=== PATIENT | female | born 1950 | race American Indian/Alaskan Native ===

== ENCOUNTER 2017-03-13 09:45 | Emergency (ER) | payer MEDICARE ==
[2017-03-13] MEDS ORDERED: ASPIRIN PO ONE (10:29)
[2017-03-13 10:41] VITALS: BP 158/75
[2017-03-13 11:22] LABS: Basophils % (Auto) 0.3 % (0.0-1.8); Eosinophils # (Auto) 0.1 K/mm3 (0.0-0.4); Eosinophils % (Auto) 0.9 % (0.0-4.3); Hemoglobin 10.8 gm/dl (10.1-14.3); Lymphocytes # (Auto) 1.9 K/mm3 (1.2-5.4); Lymphocytes % (Auto) 16.1 % (13.4-35.0); Mean Corpuscular HGB Conc 35 % (30-34); Mean Corpuscular Hemoglobin 32 pg (28-32); Mean Corpuscular Volume 90 fl (79-97); Monocytes # (Auto) 0.7 K/mm3 (0.0-0.8); Monocytes % (Auto) 6.1 % (0.0-7.3); Platelet Count 174 K/mm3 (140-440); Red Blood Count 3.44 M/mm3 (3.65-5.03)
--- NOTE | 2017-03-13 11:22 | Emergency Department Report ---
ED Syncope HPI - General Chief Complaint: Syncope Stated Complaint: SYNCOPE Time Seen by Provider: 03/13/17 10:37 Source: patient, family, RN/MD - History of Present Illness Timing/Prior Episodes: single episode today Precipitating Factors: Positive: other (dialysis session. ) Context: other (lying in bed) Loss of Consciousness: prolonged (minutes) (maybe 5 minutes) Current Symptoms: back to normal - Related Data Allergies/Adverse Reactions: Allergies No Known Allergies Allergy (Unverified 11/26/12 11:49) Home Medications: Ambulatory Orders Amlodipine Besylate [Amlodipine Besylate] 5 mg PO DAILY 05/19/15 Aspirin [Aspirin TAB] 325 mg PO ONCE 05/19/15 Insulin Glargine,Hum.rec.anlog [Lantus Solostar] 40 units SQ QHS 05/19/15 Meclizine [Antivert] 25 mg PO BID PRN 05/19/15 RX: Cholecalciferol (Vitamin D3) [Vitamin D] 1,000 units PO DAILY 05/19/15 Sevelamer Carbonate [Renvela] 800 mg PO TID 05/19/15 RX: Flurbiprofen 0.03% [Ocufen] 1 drop OD BID 05/28/15 Ibuprofen [Motrin] 800 mg PO Q8HR PRN #24 tablet 03/13/17 ED Review of Systems ROS: Stated complaint: SYNCOPE Other details as noted in HPI Constitutional: denies: chills, fever Eyes: denies: eye pain, eye discharge, vision change ENT: denies: ear pain, throat pain Respiratory: denies: cough, shortness of breath, wheezing Cardiovascular: denies: chest pain, palpitations Endocrine: no symptoms reported Gastrointestinal: denies: abdominal pain, nausea, diarrhea Genitourinary: denies: urgency, dysuria, discharge Musculoskeletal: other (left leg soreness). denies: back pain, joint swelling, arthralgia Skin: denies: rash, lesions Neurological: other (dizziness). denies: headache, weakness, paresthesias Psychiatric: denies: anxiety, depression Hematological/Lymphatic: denies: easy bleeding, easy bruising ED Past Medical Hx - Past Medical History Hx Hypertension: Yes Hx Diabetes: Yes (IDDM) Hx Renal Disease: Yes Hx Arthritis: Yes - Social History Smoking Status: Former Smoker - Medications Home Medications: Home Medications Medication Instructions Recorded Confirmed Last Taken Type Amlodipine Besylate [Amlodipine 5 mg PO DAILY 05/19/15 05/28/15 05/28/15 05:00 History Besylate] Aspirin [Aspirin TAB] 325 mg PO ONCE 05/19/15 05/19/15 05/27/15 09:00 History Insulin Glargine,Hum.rec.anlog 40 units SQ QHS 05/19/15 05/28/15 05/26/15 History [Lantus Solostar] Meclizine [Antivert] 25 mg PO BID PRN 05/19/15 05/19/15 05/27/15 09:00 History RX: Cholecalciferol (Vitamin D3) 1,000 units PO DAILY 05/19/15 05/19/15 09:00 History [Vitamin D] Sevelamer Carbonate [Renvela] 800 mg PO TID 05/19/15 05/19/15 05/27/15 09:00 History RX: Flurbiprofen 0.03% [Ocufen] 1 drop OD BID 05/28/15 05/28/15 05/27/15 21:00 History Ibuprofen [Motrin] 800 mg PO Q8HR PRN #24 tablet 03/13/17 Unknown Rx ED Physical Exam - General Limitations: No Limitations General appearance: alert, in no apparent distress - Head Head exam: Present: atraumatic, normocephalic - Eye Eye exam: Present: normal appearance - ENT ENT exam: Present: mucous membranes moist - Neck Neck exam: Present: normal inspection - Respiratory Respiratory exam: Present: normal lung sounds bilaterally. Absent: respiratory distress - Cardiovascular Cardiovascular Exam: Present: regular rate, normal rhythm. Absent: systolic murmur, diastolic murmur, rubs, gallop - GI/Abdominal GI/Abdominal exam: Present: soft, normal bowel sounds - Extremities Exam Extremities exam: Present: normal inspection - Expanded Lower Extremity Exam Left Knee exam: Present: normal inspection Lower Leg exam: Present: normal inspection Ankle exam: Present: tenderness (lateral malleolus). Absent: swelling, deformity Foot/Toe exam: Present: normal inspection - Back Exam Back exam: Present: normal inspection - Neurological Exam Neurological exam: Present: alert, oriented X3, other (residual left sided weakness. ) - Psychiatric Psychiatric exam: Present: normal affect, normal mood - Skin Skin exam: Present: warm, dry, intact, normal color. Absent: rash ED Course Vital Signs 03/13/17 10:40 Temperature 97.6 F Pulse Rate 73 Respiratory 18 Rate Blood Pressure 158/75 [Right] O2 Sat by Pulse 97 Oximetry ED Medical Decision Making - Lab Data Result diagrams: 03/13/17 11:06 03/13/17 11:06 Critical care attestation.: If time is entered above; I have spent that time in minutes in the direct care of this critically ill patient, excluding procedure time. ED Disposition Clinical Impression: Ankle fracture, lateral malleolus, closed Qualifiers: Encounter type: initial encounter Fracture alignment: nondisplaced Laterality: left Qualified Code(s): S82.65XA - Nondisplaced fracture of lateral malleolus of left fibula, initial encounter for closed fracture Syncope Qualifiers: Syncope type: unspecified Qualified Code(s): R55 - Syncope and collapse Hypertension Qualifiers: Hypertension type: unspecified Qualified Code(s): I10 - Essential (primary) hypertension Disposition: TO HOME OR SELFCARE Is pt being admited?: No Does the pt Need Aspirin: No Condition: Stable Instructions: Syncope (ED), Hypertension (ED) Prescriptions: Ibuprofen [Motrin] 800 mg PO Q8HR PRN #24 tablet PRN Reason: Pain Referrals: DENISE CORONADO MD [Primary Care Provider] - 3-5 Days Time of Disposition: 14:36
--- NOTE | 2017-03-13 13:08 | Cat Scan Report ---
CT HEAD WITHOUT CONTRAST INDICATION: Syncope. COMPARISON: April 2011. FINDINGS: Noncontrast head CT again demonstrates streak artifact from multiple left parietal scalp radiodense foreign bodies. Normal imaged ventricles and sulci. Mild periventricular and white matter hypodense small vessel ischemic disease. No definite acute infarct, hemorrhage mass effect or midline shift. Approximately 5 mm evolved lacunar infarct in the thalamus on the left, axial image 27, series 2. No abnormal extra axial fluid collections. Normal posterior fossa with preserved basilar cisterns. Approximately 4 mm lacunar infarct in pamela on the right, axial image 18. Deflated right eye globe with increased calcification again noted. Interval left cataract surgery. Clear paranasal sinuses and mastoid air cells. Intact calvarium. Atherosclerotic ICA calcifications. Edentulous jaw. CONCLUSION: No acute intracranial CT abnormality with various other findings, as above. Thank you for the opportunity to participate in this patient's care.
--- NOTE | 2017-03-13 13:16 | XRay Report ---
LEFT ANKLE RADIOGRAPHS INDICATION: Injury. COMPARISON: None similar. FINDINGS: AP and lateral left ankle radiographs suggest subtle horizontal lucency with minimal cortical offset involving the lateral malleolus, situated approximately 1 cm proximal to its tip. Intact remainder bones. No significant soft tissue swelling though appreciated. Extensive atherosclerotic vascular calcifications. Possible osteopenia. CONCLUSION: Left lateral malleolar nondisplaced fracture questioned with few other findings, as above. Directed clinical correlation recommended. Thank you for the opportunity to participate in this patient's care.
[2017-03-13] MEDS ORDERED: MOTRIN PO ONE (13:48)
[2017-03-13 14:39] LABS: Basophils # (Auto) 0.1 K/mm3 (0.0-0.1); Basophils % (Auto) 0.4 % (0.0-1.8); Eosinophils # (Auto) 0.1 K/mm3 (0.0-0.4); Eosinophils % (Auto) 0.4 % (0.0-4.3); Hematocrit 31.8 % (30.3-42.9); Hemoglobin 10.5 gm/dl (10.1-14.3); Lymphocytes # (Auto) 2.2 K/mm3 (1.2-5.4); Lymphocytes % (Auto) 16.7 % (13.4-35.0); Mean Corpuscular HGB Conc 33 % (30-34); Mean Corpuscular Hemoglobin 31 pg (28-32); Mean Corpuscular Volume 92 fl (79-97); Monocytes # (Auto) 0.7 K/mm3 (0.0-0.8); Monocytes % (Auto) 5.3 % (0.0-7.3); Platelet Count 181 K/mm3 (140-440); Red Blood Count 3.45 M/mm3 (3.65-5.03); Red Cell Distribution Width 15.8 % (13.2-15.2)
[2017-03-13 14:40] LABS: Creatine Kinase MB 1.7 ng/mL (0.0-4.0)
[2017-03-13 14:41] LABS: Calcium 9.3 mg/dL (8.4-10.2)
== END 2017-03-13 16:30 | disposition home or self-care (01) ==
LOC: ED 09:45
DX: S82.65XA Nondisplaced fracture of lateral malleolus of left fibula, initial encounter for closed fracture (principal); I10 Essential (primary) hypertension; R55 Syncope and collapse; E11.9 Type 2 diabetes mellitus without complications; W18.30XA Fall on same level, unspecified, initial encounter; Y93.89 Activity, other specified; Y92.89 Other specified places as the place of occurrence of the external cause; Y99.8 Other external cause status
CPT/HCPCS: 36415; 70450; 80048; 82550; 82553; 82962; 84484; 85025; 93005; 93010

== ENCOUNTER 2019-01-21 13:52 | Outpatient (CLI) | payer MEDICARE ==
--- NOTE | 2019-01-21 15:36 | XRay Report ---
RIGHT FOOT, 3 VIEWS INDICATION: 782.3 PAIN AND EDEMA. COMPARISON: None. IMPRESSION: There are diffuse vascular calcifications suggesting underlying diabetes or advanced per ipheral vascular disease. The bony structures are intact. No evidence for fracture, bony destruction or erosive joint pathology. Signer Name: Dillon Arevalo Jr, MD Signed: 01/21/2019 3:32 PM Workstation Name: [id number]
== END 2019-01-21 13:53 | disposition home or self-care (01) ==
LOC: XRAY 13:52
PROVIDERS: ATTEND Surgery Vascular Surgery
DX: R60.0 Localized edema (principal); T82.898A Other specified complication of vascular prosthetic devices, implants and grafts, initial encounter; X58.XXXA Exposure to other specified factors, initial encounter; Y93.89 Activity, other specified; Y92.89 Other specified places as the place of occurrence of the external cause; Y99.8 Other external cause status

== ENCOUNTER 2019-11-17 13:42 | Outpatient (CLI) | payer MEDICARE ==
--- NOTE | 2019-11-17 14:53 | XRay Report ---
LUMBAR SPINE 3 VIEWS INDICATION / CLINICAL INFORMATION: LUMBAR PAIN. COMPARISON: None available. FINDINGS: VERTEBRAE: No fracture. 3 mm anterolisthesis of L4 on L5 DISC SPACES:Mild multilevel discogenic degenerative disease L2-S1. FACET JOINTS:Moderate facet degenerative disease L3-S1 ADDITIONAL FINDINGS: None. IMPRESSION: 1. No significant abnormality. Signer Name: Farhat Osborn MD Signed: 11/17/2019 2:48 PM Workstation Name: [id number]
--- NOTE | 2019-11-17 14:54 | XRay Report ---
. BILATERAL HIP 3 VIEW(S) INDICATION / CLINICAL INFORMATION: SACROCOCCYGEAL DISORDERS COMPARISON: None available. FINDINGS: BONES / JOINT(S): No acute fracture or subluxation. None moderate degenerative arthrosis both hips. SOFT TISSUES: No significant abnormality. ADDITIONAL FINDINGS: Extensive vascular calcifications both iliac arteries with left proximal femoral artery stent Signer Name: Farhat Osborn MD Signed: 11/17/2019 2:49 PM Workstation Name: [id number]
== END 2019-11-17 13:43 | disposition home or self-care (01) ==
LOC: XRAY 13:42
PROVIDERS: ATTEND Student in an Organized Health Care Education/Training Program
DX: M16.0 Bilateral primary osteoarthritis of hip (principal); M51.37 Other intervertebral disc degeneration, lumbosacral region; M53.3 Sacrococcygeal disorders, not elsewhere classified; M47.817 Spondylosis without myelopathy or radiculopathy, lumbosacral region
CPT/HCPCS: 72100; 73521

== ENCOUNTER 2020-10-09 12:17 | Emergency (ER) | payer MEDICARE ==
[2020-10-09 16:35] VITALS: BP 140/76
--- NOTE | 2020-10-09 19:16 | Emergency Department Report ---
ED General Adult HPI - General Chief complaint: Head Injury Stated complaint: PER PT WANTED TO GET TX/FALLEN Time Seen by Provider: 10/09/20 18:10 Source: patient Mode of arrival: Stretcher Limitations: No Limitations, Altered Mental Status - History of Present Illness Initial comments: 70-year-old female patient with history of end-stage renal disease on dialysis presents to the emergency department with complaints of posterior headache status post mechanical fall. Patient states she accidentally slipped while trying to use the bathroom and struck the back of her head on the wall behind her. There was no resulting loss of consciousness. Patient has been ambulatory without assistance since the injury occurred. Patient is able to recall the events surrounding the injury in entirety. Patient went to dialysis today but was told she could not safely be dialyzed until she had a negative head CT. Patient does not take oral anticoagulation however she does receive heparin flushes with her 3x per week dialysis. Denies seizure, syncope, vision changes, nausea, vomiting, paresthesias, numbness, weakness. Denies all other complaints at this time. - Related Data Home Medications Medication Instructions Recorded Confirmed Last Taken Amlodipine Besylate 5 mg PO DAILY 05/19/15 06/29/18 06/28/18 10:00 Cholecalciferol (Vitamin D3) 1,000 units PO DAILY 05/19/15 06/29/18 06/28/18 10:00 [Vitamin D] Insulin Glargine,Hum.rec.anlog 40 units SQ QHS 05/19/15 06/29/18 06/28/18 21:00 [Lantus Solostar] Meclizine [Antivert] 25 mg PO BID PRN 05/19/15 06/29/18 06/28/18 10:00 Sevelamer Carbonate [Renvela] 800 mg PO TID 05/19/15 06/29/18 06/28/18 10:00 Flurbiprofen 0.03% [Ocufen] 1 drop OD BID 05/28/15 06/29/18 06/28/18 10:00 Previous Rx's Medication Instructions Recorded Last Taken Type Clopidogrel [Plavix] 75 mg PO QDAY #30 tablet 05/15/17 06/28/18 10:00 Rx AtorvaSTATin [Lipitor] 40 mg PO QHS #30 tablet 07/01/18 Unknown Rx Allergies Allergy/AdvReac Type Severity Reaction Status Date / Time No Known Allergies Allergy Unverified 11/26/12 11:49 ED Review of Systems ROS: Stated complaint: PER PT DR WANTED TO GET TX/FALLEN Other details as noted in HPI Other: CARDIOVASCULAR: Negative for chest pain. PULMONARY: Negative for dyspnea. GASTROINTESTINAL: Negative for abdominal pain. MUSCULOSKELETAL: Negative for back pain and neck pain. NEUROLOGICAL: Positive for headache. INTEGUMENTARY: Negative for ecchymosis. ED Past Medical Hx - Past Medical History Previous Medical History?: Yes Hx Hypertension: Yes Hx CVA: Yes (left side weakness) Hx Diabetes: Yes Hx Renal Disease: Yes (ESRD on HD) Hx Arthritis: Yes Hx HIV: No - Surgical History Past Surgical History?: Yes Additional Surgical History: Left arm fistula, Hysterectomy - Social History Smoking Status: Former Smoker - Medications Home Medications: Home Medications Medication Instructions Recorded Confirmed Last Taken Type Amlodipine Besylate 5 mg PO DAILY 05/19/15 06/29/18 06/28/18 10:00 History Cholecalciferol (Vitamin D3) 1,000 units PO DAILY 05/19/15 06/29/18 06/28/18 10:00 History [Vitamin D] Insulin Glargine,Hum.rec.anlog 40 units SQ QHS 05/19/15 06/29/18 06/28/18 21:00 History [Lantus Solostar] Meclizine [Antivert] 25 mg PO BID PRN 05/19/15 06/29/18 06/28/18 10:00 History Sevelamer Carbonate [Renvela] 800 mg PO TID 05/19/15 06/29/18 06/28/18 10:00 History Flurbiprofen 0.03% [Ocufen] 1 drop OD BID 05/28/15 06/29/18 06/28/18 10:00 History Clopidogrel [Plavix] 75 mg PO QDAY #30 tablet 05/15/17 06/29/18 06/28/18 10:00 Rx AtorvaSTATin [Lipitor] 40 mg PO QHS #30 tablet 07/01/18 Unknown Rx ED Physical Exam - General Limitations: No Limitations, Altered Mental Status - Other Other exam information: Airway: Patent and intact. Trachea is midline. Breathing: No respiratory distress. Circulation: Normal peripheral perfusion. Deficit (Neuro): Awake, alert, appropriately interactive. GCS 15. Strength and sensation intact. Follows commands. No focal deficits. HEENT: Posterior scalp tenderness without obvious hematoma or step-off. EOMI. Pupils equal and round. Facial bones are stable. No ecchymosis suggestive of basilar skull fracture. Neck: No posterior midline cervical tenderness. No step-offs. Active rotation of the cervical spine intact bilaterally. Chest Wall: Equal chest rise. Chest wall is non-tender, no deformity, no crepitus. Abdominal: Soft, non-tender. No guarding, rigidity, or rebound. No discoloration. No organomegaly. Skin: No abrasions, lacerations, or ecchymosis. Back: No midline thoracic or lumbar tenderness. No step-offs. Extremities: Non-tender. Moves all four extremities spontaneously. Full range of motion intact. No apparent deformity. Neurovascular and motor/sensory function intact. ED Course Vital Signs 10/09/20 14:22 Temperature 98.4 F Pulse Rate 72 Respiratory 16 Rate Blood Pressure 140/76 O2 Sat by Pulse 98 Oximetry ED Medical Decision Making - Medical Decision Making Differential diagnosis including but not limited to: skull fracture, intracranial hemorrhage, scalp contusion, concussion CT head indication: -head/neck injury -age > 65 -anticoagulation (heparin) CT cervical spine indication: -head/neck injury -age >65 On reevaluation, patient remains stable. Repeat neurological exam remains nonfocal. CT head/neck without acute process. No clinical indication for furt her diagnostic work-up on an emergent basis at this time. Patient will be discharged home to continue dialysis as previously scheduled. Advised to ambulate with care and take Tylenol every 4 hours as needed for pain. Patient expressed understanding and is agreeable to plan of care. Strict return precautions provided. Repeat exam is unremarkable and benign. History, exam, diagnostic testing, and current condition do not suggest worrisome pathology to warrant further testing, continued ED treatment, admission, or surgical evaluation at this point. Given the low probability of a significant medical illness, it would be more likely to result in harm than benefit to perform further testing at this stage. Discussed findings, presumptive diagnosis, need for follow-up and specific signs/symptoms that should prompt immediate return to the emergency department. Instructions were explained in detail to the patient in addition to giving written discharge information. Patient expressed understanding and was given the opportunity to ask questions, all of which were satisfactorily answered prior to discharge home. Critical care attestation.: If time is entered above; I have spent that time in minutes in the direct care of this critically ill patient, excluding procedure time. ED Disposition Clinical Impression: History of end stage renal disease Scalp contusion Qualifiers: Encounter type: initial encounter Qualified Code(s): S00.03XA - Contusion of scalp, initial encounter Disposition: HOME / SELF CARE / HOMELESS Is pt being admited?: No Does the pt Need Aspirin: No Condition: Stable Instructions: Facial or Scalp Contusion Additional Instructions: Take Tylenol every 4 hours as needed for pain. Apply ice to affected area as needed for pain/swelling. Ambulate with care. Follow-up with your primary care provider this week. Call Monday to schedule an appointment. Follow-up for your dialysis as previously scheduled. Return to the emergency department immediately for new or worsening symptoms. Specifically, return to the emergency department immediately for worsening pain, dizziness, vomiting, seizure, loss of consciousness, vision changes, or any other concerns. Referrals: [facility] [Provider Group] - 3-5 Days VIRAJ BISWAS MD [Staff Physician] - 3-5 Days Time of Disposition: 20:13
--- NOTE | 2020-10-09 19:51 | Cat Scan Report ---
CT HEAD WITHOUT CONTRAST INDICATION / CLINICAL INFORMATION: trauma. Patient fell and struck the back of the head. TECHNIQUE: All CT scans at this location are performed using CT dose reduction for ALARA by means of automated exposure control. COMPARISON: CT dated 06/29/18 FINDINGS: HEMORRHAGE: None. EXTRA-AXIAL SPACES: Normal in size and morphology for the patient's age. VENTRICULAR SYSTEM: Normal in size and morphology for the patient's age. CEREBRAL PARENCHYMA: Scattered white matter hypodensities likely related to microangiopathy. Old left thalamic infarct. No change. No acute territorial infarct. MIDLINE SHIFT / HERNIATION: None. CEREBELLUM / BRAINSTEM: No significant abnormality. ORBITS: Contracted and calcified right globe is unchanged. SOFT TISSUES: Metallic densities in the left posterior scalp are unchanged. SKULL: No significant abnormality. PARANASAL SINUSES / MASTOID AIR CELLS: Normal as visualized. ADDITIONAL FINDINGS: None. IMPRESSION: 1. No acute intracranial abnormality. 2. Chronic and age-related findings are stable. No significant change. Signer Name: Jose Mena MD Signed: 10/09/2020 7:47 PM Workstation Name: [id number]
--- NOTE | 2020-10-09 19:53 | Cat Scan Report ---
CT CERVICAL SPINE WITHOUT CONTRAST INDICATION / CLINICAL INFORMATION: trauma. Patient fell this morning instructed back of head. TECHNIQUE: Axial CT images were obtained through the cervical spine. Sagittal and coronal reformatted images were produced. All CT scans at this location are performed using CT dose reduction for ALARA by means of automated exposure control. COMPARISON: None available. FINDINGS: VERTEBRAE: No significant abnormality. ALIGNMENT: No significant abnormality. DISC SPACES: Multilevel discogenic spondylosis of the lower cervical spine. FACET JOINTS: Mild multilevel facet spondylosis. CRANIOCERVICAL JUNCTION:No significant abnormality. SPINAL CANAL: No significant abnormality. PARASPINAL SOFT TISSUES: No significant abnormality. ADDITIONAL FINDINGS: None. LUNG APICES: No significant abnormality of visualized lungs. IMPRESSION: 1. No acute findings. Signer Name: Jose Mena MD Signed: 10/09/2020 7:49 PM Workstation Name: [id number]
== END 2020-10-09 20:25 | disposition home or self-care (01) ==
LOC: ED 12:17
DX: S00.03XA Contusion of scalp, initial encounter (principal); I12.0 Hypertensive chronic kidney disease with stage 5 chronic kidney disease or end stage renal disease; E11.22 Type 2 diabetes mellitus with diabetic chronic kidney disease; N18.6 End stage renal disease; I63.9 Cerebral infarction, unspecified; M19.90 Unspecified osteoarthritis, unspecified site; Z98.890 Other specified postprocedural states; Z87.891 Personal history of nicotine dependence; W01.0XXA Fall on same level from slipping, tripping and stumbling without subsequent striking against object, initial encounter; Y93.89 Activity, other specified; Y92.091 Bathroom in other non-institutional residence as the place of occurrence of the external cause; Y99.8 Other external cause status
CPT/HCPCS: 70450; 72125; 99283

== ENCOUNTER 2021-09-08 11:07 | Emergency (ER) | payer MEDICARE ==
--- NOTE | 2021-09-08 11:35 | Consultation ---
History of Present Illness - Reason for Consult Consult date: 09/08/21 - History of Present Illness [facility] Consult Note # Demographics Consult Type: Acute Stroke Level 1 (0-4.5 hrs) Patient Location: Emergency Room First Name: jolie Last Name: yolanda Date of : 1950 Age: 71 Gender: Female Facility: [facility] Time of Initial Page (): 09/08/2021, 11:16 Time of Return Call (): 09/08/2021, 11:16 # HPI History: 71yo woman who was getting dialysis. She was noted to have slurred speech. However, staff felt at dialysis that this was normal for her. there is no focal weakness in the arms or legs that are new. The patient feels she has had the same level of slurring since her stroke in 2019, there has been no change today. Last Known Normal: unknown # Scores Time of exam and NIHSS (): 09/08/2021, 11:24 Level of Consciousness 1a: [0] = Alert; keenly responsive LOC Questions 1b: [0] = Answers both questions correctly LOC Commands 1c: [0] = Performs both tasks correctly Best Gaze 2: [0] = Normal Visual 3: [0] = No visual loss Facial Palsy 4: [0] = Normal symmetrical movements Motor Arm Left 5a: [0] = No drift Motor Arm Right 5b: [0] = No drift Motor Leg Left 6a: [0] = No drift Motor Leg Right 6b: [0] = No drift Limb Ataxia 7: [0] = Absent Sensory 8: [0] = Normal Best Language 9: [0] = No aphasia Dysarthria 10: [1] = [id number] dysarthria Extinction and Inattention 11: [0] = No abnormality NIHSS Total: 1 # Data Time Head CT personally read by me (): 09/08/2021, 11:[address]: no bleed # Assessment Impression: slurred speech that the patient does not feel there has been any change # Plan Thrombolytic/Intervention: NOT IV Thrombolysis or IA Intervention candidate Thrombolytic Exclusion (< 3 hour window): non-disabling deficit Intraarterial Exclusion: clinically not consistent with stroke Other: I have discussed my recommendations with the referring provider Additional Recommendations: no further neuro eval at this time Medications and Allergies Allergies Allergy/AdvReac Type Severity Reaction Status Date / Time No Known Allergies Allergy Verified 09/08/21 11:17 Home Medications Medication Instructions Recorded Confirmed Last Taken Type Amlodipine Besylate 5 mg PO DAILY 05/19/15 06/29/18 06/28/18 10:00 History Cholecalciferol (Vitamin D3) 1,000 units PO DAILY 05/19/15 06/29/18 06/28/18 10:00 History [Vitamin D] Insulin Glargine,Hum.rec.anlog 40 units SQ QHS 05/19/15 06/29/18 06/28/18 21:00 History [Lantus Solostar] Meclizine [Antivert] 25 mg PO BID PRN 05/19/15 06/29/18 06/28/18 10:00 History Sevelamer Carbonate [Renvela] 800 mg PO TID 05/19/15 06/29/18 06/28/18 10:00 History Flurbiprofen 0.03% [Ocufen] 1 drop OD BID 05/28/15 06/29/18 06/28/18 10:00 History Clopidogrel [Plavix] 75 mg PO QDAY #30 tablet 05/15/17 06/29/18 06/28/18 10:00 Rx AtorvaSTATin [Lipitor] 40 mg PO QHS #30 tablet 07/01/18 Unknown Rx Exam - Constitutional Vitals: Temp Pulse Resp BP Pulse Ox 98.1 F 76 18 147/68 97 09/08/21 11:14 09/08/21 11:14 09/08/21 11:14 09/08/21 11:14 09/08/21 11:14
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
--- NOTE | 2021-09-08 11:51 | Emergency Department Report ---
ED Neuro Deficit HPI - General Chief Complaint: Neuro Symptoms/Deficit Stated Complaint: SLURRED SPEECH Time Seen by Provider: 09/08/21 11:20 Source: patient, EMS Mode of arrival: Stretcher Limitations: No Limitations - History of Present Illness Initial Comments: Patient is a 71-year-old female sent from dialysis for neuro evaluation after provider there noticed that she had slurred speech. Patient reports CVA back in 2019 and states her speech has been slurred like this since that time. She denies any new deficits. Denies any symptoms. She received her full course of dialysis today. - Related Data Home Medications: Home Medications Medication Instructions Recorded Confirmed Last Taken Amlodipine Besylate 5 mg PO DAILY 05/19/15 06/29/18 06/28/18 10:00 Cholecalciferol (Vitamin D3) 1,000 units PO DAILY 05/19/15 06/29/18 06/28/18 10:00 [Vitamin D] Insulin Glargine,Hum.rec.anlog 40 units SQ QHS 05/19/15 06/29/18 06/28/18 21:00 [Lantus Solostar] Meclizine [Antivert] 25 mg PO BID PRN 05/19/15 06/29/18 06/28/18 10:00 Sevelamer Carbonate [Renvela] 800 mg PO TID 05/19/15 06/29/18 06/28/18 10:00 Flurbiprofen 0.03% [Ocufen] 1 drop OD BID 05/28/15 06/29/18 06/28/18 10:00 Previous Rx's Medication Instructions Recorded Last Taken Type Clopidogrel [Plavix] 75 mg PO QDAY #30 tablet 05/15/17 06/28/18 10:00 Rx AtorvaSTATin [Lipitor] 40 mg PO QHS #30 tablet 07/01/18 Unknown Rx Allergies/Adverse Reactions: Allergies Allergy/AdvReac Type Severity Reaction Status Date / Time No Known Allergies Allergy Verified 09/08/21 11:17 ED Review of Systems ROS: Stated complaint: SLURRED SPEECH Other details as noted in HPI Comment: All other systems reviewed and negative Constitutional: denies: chills, fever Respiratory: denies: cough, shortness of breath, wheezing Cardiovascular: denies: chest pain, palpitations Endocrine: no symptoms reported Gastrointestinal: denies: abdominal pain, nausea, diarrhea Genitourinary: denies: urgency, dysuria, discharge Musculoskeletal: denies: back pain, joint swelling, arthralgia Skin: denies: rash, lesions Neurological: denies: headache, weakness, paresthesias Psychiatric: denies: anxiety, depression Hematological/Lymphatic: denies: easy bleeding, easy bruising ED Past Medical Hx - Past Medical History Hx Hypertension: Yes Hx CVA: Yes (left side weakness) Hx Diabetes: Yes Hx Renal Disease: Yes (ESRD on HD) Hx Arthritis: Yes Hx HIV: No - Surgical History Additional Surgical History: Left arm fistula, Hysterectomy - Social History Smoking Status: Former Smoker - Medications Home Medications: Home Medications Medication Instructions Recorded Confirmed Last Taken Type Amlodipine Besylate 5 mg PO DAILY 05/19/15 06/29/18 06/28/18 10:00 History Cholecalciferol (Vitamin D3) 1,000 units PO DAILY 05/19/15 06/29/18 06/28/18 10:00 History [Vitamin D] Insulin Glargine,Hum.rec.anlog 40 units SQ QHS 05/19/15 06/29/18 06/28/18 21:00 History [Lantus Solostar] Meclizine [Antivert] 25 mg PO BID PRN 05/19/15 06/29/18 06/28/18 10:00 History Sevelamer Carbonate [Renvela] 800 mg PO TID 05/19/15 06/29/18 06/28/18 10:00 History Flurbiprofen 0.03% [Ocufen] 1 drop OD BID 05/28/15 06/29/18 06/28/18 10:00 History Clopidogrel [Plavix] 75 mg PO QDAY #30 tablet 05/15/17 06/29/18 06/28/18 10:00 Rx AtorvaSTATin [Lipitor] 40 mg PO QHS #30 tablet 07/01/18 Unknown Rx ED Neuro Physical Exam - General Limitations: No Limitations General appearance: alert, in no apparent distress Suspected Stroke: No - Head Head exam: Present: atraumatic, normocephalic - Eye Eye exam: Present: normal appearance, EOMI - Neck Neck exam: Present: normal inspection - Respiratory Respiratory exam: Present: normal lung sounds bilaterally. Absent: respiratory distress - Cardiovascular Cardiovascular Exam: Present: regular rate, normal rhythm. Absent: systolic murmur, diastolic murmur, rubs, gallop - GI/Abdominal GI/Abdominal exam: Present: soft. Absent: distended, tenderness - Rectal Rectal exam: Present: deferred - Neurological Exam Neurological exam: Present: alert, oriented X3, other (Mild dysarthria) - NIHSS Assessment Interval: Baseline 1a. Level of Consciousness: alert/keenly responsive 1b. LOC Questions: answers both correctly 1c. LOC Commands: performs tasks correctly 2. Best Gaze: normal 3. Visual: no visual loss 4. Facial Palsy: normal symmetrical movement 5b. Motor Arm Right: no drift 5a. Motor Arm Left: no drift 6a. Motor Leg Left: no drift 6b. Motor Leg Right: no drift 7. Limb Ataxia: absent 8. Sensory: normal 9. Best Language: no aphasia 10. Dysarthria: mild/moderate dysarthria 11. Extinction/Inattention: no abnormality Total Score: 1 Stroke Severity: Minor Stroke - Psychiatric Psychiatric exam: Present: normal affect, normal mood - Skin Skin exam: Present: warm, dry, intact, normal color ED Course Vital Signs 09/08/21 11:14 Temperature 98.1 F Pulse Rate 76 Respiratory 18 Rate Blood Pressure 147/68 [Left] O2 Sat by Pulse 97 Oximetry - Lab Data Lab Results 09/08/21 Range/Units 11:35 POC Glucose 131 H (70-105) mg/dL - Medical Decision Making CT head obtained and is unremarkable. Neuro consult obtained and feels this is not clinically consistent with acute CVA. NIH scale 1. Patient remains asymptomatic. She is stable for discharge. Critical care attestation.: If time is entered above; I have spent that time in minutes in the direct care of this critically ill patient, excluding procedure time. ED Disposition Clinical Impression: Dysarthria due to old stroke Disposition: 01 HOME / SELF CARE / HOMELESS Is pt being admited?: No Does the pt Need Aspirin: No Condition: Stable Time of Disposition: 11:51
[2021-09-08 12:34] VITALS: BP 112/65
--- NOTE | 2021-09-09 10:07 | Electrocardiograph Report ---
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
== END 2021-09-08 14:04 | disposition home or self-care (01) ==
LOC: ED 11:07
DX: R47.1 Dysarthria and anarthria (principal); I10 Essential (primary) hypertension; E11.9 Type 2 diabetes mellitus without complications; N28.9 Disorder of kidney and ureter, unspecified; M19.90 Unspecified osteoarthritis, unspecified site; Z86.73 Personal history of transient ischemic attack (TIA), and cerebral infarction without residual deficits; Z87.891 Personal history of nicotine dependence; Z91.09 Other allergy status, other than to drugs and biological substances; Z79.899 Other long term (current) drug therapy
CPT/HCPCS: 70450; 82962; 93005; 99284

== ENCOUNTER 2021-10-23 08:24 | Emergency (ER) | payer MEDICARE ==
[2021-10-23 09:00] VITALS: BP 147/72
[2021-10-23] MEDS ORDERED: PROCHLORPERAZINE EDISYLATE 10 MG/2 ML VIAL IV ONE (09:25)
--- NOTE | 2021-10-23 09:28 | Emergency Department Report ---
ED Headache HPI - General Chief Complaint: Headache Stated Complaint: HEADACHE Time Seen by Provider: 10/23/21 09:24 Source: patient Exam Limitations: no limitations - History of Present Illness Initial Comments: Patient is a 71-year-old female brought in by EMS with complaint of throbbing occipital headache. She reports history of frequent headaches however states this headache has been worsening over the past several days. She denies any nausea or vomiting. No fever, chills or focal weakness. Allergies/Adverse Reactions: Allergies No Known Allergies Allergy (Verified 09/08/21 11:17) Home Medications: Ambulatory Orders Amlodipine Besylate 5 mg PO DAILY 05/19/15 Cholecalciferol (Vitamin D3) [Vitamin D] 1,000 units PO DAILY 05/19/15 Insulin Glargine,Hum.rec.anlog [Lantus Solostar] 40 units SQ QHS 05/19/15 Meclizine [Antivert] 25 mg PO BID PRN 05/19/15 Sevelamer Carbonate [Renvela] 800 mg PO TID 05/19/15 Flurbiprofen 0.03% [Ocufen] 1 drop OD BID 05/28/15 Clopidogrel [Plavix] 75 mg PO QDAY #30 tablet 05/15/17 AtorvaSTATin [Lipitor] 40 mg PO QHS #30 tablet 07/01/18 ED Review of Systems ROS: Stated complaint: HEADACHE Other details as noted in HPI Constitutional: denies: chills, fever Respiratory: denies: cough, shortness of breath, wheezing Cardiovascular: denies: chest pain, palpitations Gastrointestinal: denies: abdominal pain, nausea, diarrhea Genitourinary: denies: urgency, dysuria, discharge Musculoskeletal: denies: back pain, joint swelling, arthralgia Skin: denies: rash, lesions Neurological: headache Psychiatric: denies: anxiety, depression ED Past Medical Hx - Past Medical History Hx Hypertension: Yes Hx CVA: Yes (left side weakness) Hx Diabetes: Yes Hx Renal Disease: Yes (ESRD on HD) Hx Arthritis: Yes Hx HIV: No - Surgical History Additional Surgical History: Left arm fistula, Hysterectomy - Social History Smoking Status: Former Smoker - Medications Home Medications: Home Medications Medication Instructions Recorded Confirmed Last Taken Type Amlodipine Besylate 5 mg PO DAILY 05/19/15 06/29/18 06/28/18 10:00 History Cholecalciferol (Vitamin D3) 1,000 units PO DAILY 05/19/15 06/29/18 06/28/18 10:00 History [Vitamin D] Insulin Glargine,Hum.rec.anlog 40 units SQ QHS 05/19/15 06/29/18 06/28/18 21:00 History [Lantus Solostar] Meclizine [Antivert] 25 mg PO BID PRN 05/19/15 06/29/18 06/28/18 10:00 History Sevelamer Carbonate [Renvela] 800 mg PO TID 05/19/15 06/29/18 06/28/18 10:00 History Flurbiprofen 0.03% [Ocufen] 1 drop OD BID 05/28/15 06/29/18 06/28/18 10:00 History Clopidogrel [Plavix] 75 mg PO QDAY #30 tablet 05/15/17 06/29/18 06/28/18 10:00 Rx AtorvaSTATin [Lipitor] 40 mg PO QHS #30 tablet 07/01/18 Unknown Rx ED Physical Exam - General Limitations: Physical Limitation General appearance: alert, in no apparent distress - Head Head exam: Present: atraumatic, normocephalic - Respiratory Respiratory exam: Present: normal lung sounds bilaterally. Absent: respiratory distress - Cardiovascular Cardiovascular Exam: Present: regular rate, normal rhythm, normal heart sounds - GI/Abdominal GI/Abdominal exam: Present: soft. Absent: distended, tenderness - Neurological Exam Neurological exam: Present: alert, oriented X3, CN II-XII intact - Psychiatric Psychiatric exam: Present: normal affect, normal mood - Skin Skin exam: Present: warm, dry, intact, normal color ED Course Vital Signs 10/23/21 10/23/21 08:57 09:46 Temperature 98.2 F Pulse Rate 79 Respiratory 18 Rate Blood Pressure 147/72 [Left] O2 Sat by Pulse 98 100 Oximetry ED Medical Decision Making - Medical Decision Making CT head unremarkable. Patient given IV Compazine resulting in resolution of her symptoms. Stable for discharge home with return precautions. Critical care attestation.: If time is entered above; I have spent that time in minutes in the direct care of this critically ill patient, excluding procedure time. ED Disposition Clinical Impression: Occipital headache Disposition: 01 HOME / SELF CARE / HOMELESS Is pt being admited?: No Condition: Stable Instructions: Tension Headache, Adult Additional Instructions: Please follow-up with your regular doctor as needed. You may return if your symptoms worsen. Time of Disposition: 11:58
--- NOTE | 2021-10-23 10:41 | Cat Scan Report ---
CT BRAIN: 10/23/2021 INDICATION / CLINICAL INFORMATION: Headache. COMPARISON: CT brain 09/08/2021 FINDINGS: BRAIN/INTRACRANIAL STRUCTURES: Unenhanced CT images of the brain demonstrate no evidence of acute abn ormality. Ventricles and sulci are prominent in size, consistent with diffuse cerebral and cerebellar atrophy. There is no evidence of acute ischemic injury, hemorrhage, or mass. There are no abnormal extra-axial fluid collections. Pelvic fragments are again noted in the left parietal scalp. 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 IMPRESSION: No acute abnormality. No change when compared to 09/08/[address] scans at this location are performed using dose reduction to ALARA by means of automated expos ure control. Signer Name: Rupert Quan MD Signed: 10/23/2021 10:36 AM Workstation Name: [id number]
== END 2021-10-23 13:30 | disposition home or self-care (01) ==
LOC: ED 08:24
DX: R51.9 Headache, unspecified (principal); I12.0 Hypertensive chronic kidney disease with stage 5 chronic kidney disease or end stage renal disease; E11.22 Type 2 diabetes mellitus with diabetic chronic kidney disease; N18.6 End stage renal disease; M19.90 Unspecified osteoarthritis, unspecified site; Z99.2 Dependence on renal dialysis; Z87.891 Personal history of nicotine dependence; Z79.899 Other long term (current) drug therapy; Z90.710 Acquired absence of both cervix and uterus
CPT/HCPCS: 70450; 96374; 99284; J0780